=== PATIENT | female | born 1990 | race Caucasian/White ===

== ENCOUNTER 2021-09-06 09:44 | Emergency (ER) | payer MEDICAID ==
[~2021-09-06] VITALS: Ht 154.9 cm; Wt 56.7 kg
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
[2021-09-06] MEDS ORDERED: ACETAMINOPHEN ES 500 MG TABLET ONE (10:11)
[2021-09-06] MEDS ORDERED: IBUPROFEN 600 MG TABLET ONE (10:11)
[2021-09-06] MEDS: IBUPROFEN 600 MG TABLET PO ONE (10:14)
[2021-09-06] MEDS: ACETAMINOPHEN ES 500 MG TABLET PO ONE (10:14)
--- NOTE | 2021-09-06 10:15 | NUR ---
PT SIGNED WAIVER, PLACED IN PT'S CHART.
--- NOTE | 2021-09-06 10:17 | NUR ---
PT TAKEN TO RADIOLOGY
--- NOTE | 2021-09-06 10:18 | NUR ---
PT TAKEN TO CT VIA [facility]
--- NOTE | 2021-09-06 10:34 | NUR ---
PT RETURNED FROM [facility] VIA [facility]
[2021-09-06] MEDS ORDERED: IBUP-1957 PO ×2 (11:21→11:36)
[2021-09-06] MEDS ORDERED: METH-647 PO ×2 (11:21→11:36)
[2021-09-06] MEDS ORDERED: METHOCARBAMOL (500MG) 500 MG TABLET ONE (11:50)
[2021-09-06] MEDS: METHOCARBAMOL (500MG) 500 MG TABLET PO ONE (11:53)
--- NOTE | 2021-09-06 11:55 | NUR ---
Patient discharged to home in stable condition. Written and verbal after care instructions given. Patient verbalizes understanding of instruction.
[2021-09-06 11:56] VITALS: BP 132/81
== END 2021-09-06 11:56 | disposition home or self-care (01) ==
LOC: ER 09:45
DX: S13.4XXA Sprain of ligaments of cervical spine, initial encounter (principal); S20.212A Contusion of left front wall of thorax, initial encounter; Z79.899 Other long term (current) drug therapy; V89.2XXA Person injured in unspecified motor-vehicle accident, traffic, initial encounter; Y93.89 Activity, other specified; Y92.89 Other specified places as the place of occurrence of the external cause; Y99.8 Other external cause status
CPT/HCPCS: 70450-TC; 71045-TC; 72125-TC

== ENCOUNTER 2022-03-21 14:22 | Emergency (ER) | payer MEDICAID ==
[~2022-03-21] VITALS: Ht 154.9 cm; Wt 48.1 kg
[~2022-03-21 14:22] MED LIST: IBUP-1957 PO; METH-647 PO
--- NOTE | 2022-03-21 14:30 | NUR ---
BIBS C/O SORE THROAT X 3 WEEKS. 9/10 PAIN SCALE. TOOK COVID TEST AT HOME, TESTED NEGATIVE. AMBULATORY, PLAQCED IN BED, BREATHING EVEN AND UNLABORED SATURATING AT 97%RA.
[2022-03-21] MEDS ORDERED: MAG HYDROX/AL HYDROX/SIMETH 30 ML UDC ONE (15:18)
[2022-03-21] MEDS ORDERED: LIDOCAINE VISCOUS 2% UD 15 ML UDC ONE (15:18)
[2022-03-21] MEDS ORDERED: LIDOCAINE VISCOUS 2% UD 15 ML UDC MM ONE (15:30)
[2022-03-21] MEDS ORDERED: MAG355OR18 PO (15:30)
[2022-03-21] MEDS ORDERED: FAMO-131 PO (15:30)
[2022-03-21] MEDS ORDERED: MAG HYDROX/AL HYDROX/SIMETH 30 ML UDC PO ONE (15:30)
--- NOTE | 2022-03-21 15:38 | NUR ---
Patient discharged to home in stable condition. Written and verbal after care instructions given. Patient verbalizes understanding of instruction.
[2022-03-21 15:42] VITALS: BP 110/60
== END 2022-03-21 15:38 | disposition home or self-care (01) ==
LOC: ER 14:25
DX: J02.9 Acute pharyngitis, unspecified (principal); Z86.16 Personal history of COVID-19; Z79.899 Other long term (current) drug therapy